=== PATIENT | female | born 1960 ===

== ENCOUNTER 2017-09-05 20:17 | Emergency (ER) | payer MEDICAID ==
[~2017-09-05] VITALS: Ht 165.1 cm; Wt 61.2 kg
[2017-09-06 02:30] VITALS: BP 138/76
== END 2017-09-06 02:30 | disposition home or self-care (01) ==
LOC: EDBD 20:17 → ER 20:27
DX: C78.5 Secondary malignant neoplasm of large intestine and rectum (principal); Z76.1 Encounter for health supervision and care of foundling; Z59.0 Homelessness